=== PATIENT | female | born 2000 | race African-American/Black ===

== ENCOUNTER 2018-10-11 05:31 | Day surgery (SDC) | payer BC ==
[~2018-10-11] VITALS: Ht 167.6 cm; Wt 56.7 kg
[~2018-10-11 05:31] MED LIST: IBUPROFEN 400400 M2 PO
[2018-10-11 15:42] VITALS: BP 131/73
[2018-10-11 18:10] VITALS: BP 131/73
--- NOTE | 2018-10-12 06:22 | O ---
[address] [address] OPERATIVE REPORT Name: KARINA LANG Room #: DEP [facility]..#: [id number] Admission: 10/11/18 ������������������ Attend Phys: Michael De Paz MD Discharge: 10/11/18 ������������������ Date of : [birth year] Report #: [id number] THIS REPORT FOR: //name// CC: Luz De Paz DATE OF SERVICE: 10/11/2018 SERVICE: Orthopedics. FACILITY: [facility]. SURGEON: Michael De Paz MD HAND STAPLER: Yudith Anaya NP INDICATION FOR HAND STAPLER: Extremity positioning and retraction for the mass excision. PREOPERATIVE DIAGNOSES: 1. Right knee pain. 2. Right tibia osteochondroma. PROCEDURES: 1. Right knee arthroscopy with limited synovectomy. 2. Right tibia open osteochondroma excision (via separate incision). COMPLICATIONS: None. DRAINS: None. SPECIMENS: Osteochondroma, sent for permanent pathology. ESTIMATED BLOOD LOSS: 2 mL. ANESTHESIA: General. FINDINGS: 1. Normal intra-articular space within the knee other than a somewhat hypertrophic posterior fat pad, which was resected with a limited debridement/synovectomy with the shaver. 2. Cutaneous nerve noted to run directly across the osteochondroma and was being tented by the osteochondroma. 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 We have worked extensively with her including rest, activity modifications, Physical Therapy working closely with her clinical trainer, multiple clinic visits, oral medications, bracing, taping and other modalities, all without sufficient relief. Her exam was suggestive of a symptomatic osteochondroma and her MRI indicated this as well with significant edema overlying the osteochondroma. She was having a vague pain pattern distribution, which would later be explained by the findings today, which showed sensory nerve stretching across the osteochondroma at the apex. Risks, benefits, alternatives, and indication for surgery were discussed with her in detail. Risks included but not limited to pain, bleeding, infection, injury to nerves or blood vessels, persistent pain despite surgical intervention, progression of any concomitant pathology, stiffness, need for further surgery as well as recurrence of her symptoms and complications related to anesthesia. PROCEDURE IN DETAIL: After right lower extremity was correctly identified in the preoperative holding area as the operative extremity, the patient was taken to the operating room where general anesthesia was induced without complication. She was padded appropriately. Prophylactic antibiotics were administered appropriately. Tourniquet was applied to right lower extremity. Right leg was then prepped and draped in standard sterile fashion. Timeout procedure was performed. Esmarch was used. Tourniquet inflated to 250 mmHg. Standard anterolateral viewing portals followed by anterior medial working portals were established. Diagnostic arthroscopy revealed intact articular cartilage in all 3 compartments. ACL and PCL were intact. Medial and lateral menisci were intact. There was proliferative posterior fat pad, so a shaver was used to perform resection of a portion of this as well as the adjacent synovial lining. Otherwise diagnostic arthroscopy was found to be normal. The arthroscopic effusion was drained and instruments were removed from the knee. A 2.5 cm incision was made in a longitudinal fashion over the palpable osteochondroma. Full thickness skin flaps were developed. There was a cutaneous skin nerve that was visualized during the exposure that was seen and palpated to be running directly across the osteochondroma. This was dissected free and then was retracted and protected for the procedure. The pseudocapsule was then incised sharply with the knife and then electrocautery was used to isolate the osteochondroma and then a rongeur was used to resect it in one unit. Then, the rongeur was used to smooth the sharp edges and then a rasp was used to complete the smoothing effect. The specimen was sent for pathology. Tourniquet was let down. Hemostasis was achieved. Skin was closed with 2-0 Vicryl followed by running subcuticular 3-0 Monocryl. The portal sites were closed with Monocryl as well. A total of 20 mL of local anesthetic was infiltrated in the soft tissues for postoperative pain control as well as down [address] [address] OPERATIVE REPORT Name: RENE LANGPHILIPJesu Room #: DEP [facility] Opal#: [id number] Admission: 10/11/18 ������������������ Attend Phys: Michael De Paz MD Discharge: 10/11/18 ������������������ Date of : [birth year] Report #: [id number] at the level of the tibial periosteum. Sterile dressing was applied followed by compression stocking. The patient was awakened from anesthesia and taken to recovery room in stable condition. No complications. All counts were correct. ��������������������������������������������� <ELECTRONICALLY SIGNED> ���������������������������������������� By: Michael De Paz MD ��������������������������������������������� 10/12/18 0622 1803 1825 Michael De Paz MD /nt
--- NOTE | 2018-10-13 14:06 | PATH ---
[facility] [address] [place] [address] PATHOLOGY RPT PROCEDURE Name: YUMI DE LEON Room #: DEP [facility] M.R.#: [id number] ������������������ Admission: 10/11/18 ������������������ Date of : [birth year] Discharge: 10/11/18 Report #: [id number] Path Case #: [id number] [facility] Accession Number: [id number] . 01 Material submitted: . tibia - RIGHT TIBIA OSTEOCHONDROMA. Modifiers: right . 01 Clinical history: . Right knee pain . 02 Diagnosis: Bone, right tibia osteochondroma, excision: - Reactive and remodeled bone, clinically osteochondroma. - Negative for malignancy. (IUV:[place]; 10/13/2018) QMS/10/13/2018 . 02 Electronically signed: . Kay Amaya MD, Pathologist NPI- [id number] . 01 Gross description: . Received in formalin labeled "Yumi De Leon, right tibia osteochondroma," is a segment of granular, pale yellow-dee bone measuring 1.6 x 0.6 x 0.5 cm in greatest dimensions. The specimen is inked black, bisected and submitted entirely in cassette A1. Sectioning reveals calcified, pale yellow-dee cut surfaces. (DAC; 10/12/2018) XDC/XDC . 02 Pathologist provided ICD-10: D16.21 . 02 CPT . 426770, 442992 Specimen Comment: A courtesy copy of this report has been sent to Specimen Comment: [phone], . Specimen Comment: Report sent to / DR STEARNS Performed at: [address], [place] [id number] MD Kobe De La Torre MD Phone: [phone] Performed at: [address] [id number] MD Kay Amaya MD Phone: [phone]
== END 2018-10-11 19:15 | disposition home or self-care (01) ==
LOC: TBA 05:31 → OR 05:31
DX: D16.21 Benign neoplasm of long bones of right lower limb (principal); M65.861 Other synovitis and tenosynovitis, right lower leg; M25.561 Pain in right knee; Z87.891 Personal history of nicotine dependence
CPT/HCPCS: 50010; 50101; 50405; 51038; 54118; 54170; 56525; 56527; 56528; 57103; 57180; 62110; 62900; 70005